=== PATIENT | female | born 1965 | race Caucasian/White ===

== ENCOUNTER 2016-09-19 16:19 | Emergency (ER) | payer OTHER ==
[2016-09-19 16:55] VITALS: BP 131/71; PULSE 70; TEMP 98.8; BMI 21.7
[2016-09-19 17:12] LABS: URINE APPEARANCE Clear; URINE BILIRUBIN Negative (NEGATIVE); URINE BLOOD Trace-intact (NEGATIVE); URINE COLOR YELLOW; URINE GLUCOSE (UA) Negative (NEGATIVE); URINE KETONE Negative (NEGATIVE); URINE LEUK ESTERASE Negative (NEGATIVE); URINE NITRITE Negative (NEGATIVE); URINE PROTEIN Negative (NEGATIVE); URINE UROBILINOGEN 0.2 (0.2-1.0)
[2016-09-19] MEDS ORDERED: SODIUM CHLORIDE 1,000 ML IV ONE (17:16)
--- NOTE | 2016-09-19 17:16 | PDOC ---
History of Present Illness - General History Source: Patient Exam Limitations: No Limitations - History of Present Illness Initial Comments: 09/19/16 18:43 The patient is a 51 year old female with a significant past medical history of kidney stones who presents to the ED with complaints of flank pain for a week. The patient reports intermittent left sided flank pain. She states her flank pain progressively worsened today and is now radiating to her groin area. She reports chills, nausea and one episode of diarrhea this morning. Patient states her present symptoms feel similar to her history of her last 10 kidney stones. She notes her last kidney stone was in February 2016. Patient had recent oral surgery and was prescribed Flurbiprofen and Azithromycin with her last dosing at 8 am this morning. Patient is new to the area and does not have a urologist. Denies fever. Denies vomiting. Denies dysuria or changes in urinary output. Denies chest pain or shortness of breath. Denies any other symptoms. Surgical hx: . <Diamond Robb - Last Filed: 09/19/16 18:43> <Harpal Carlin - Last Filed: 09/19/16 19:36> - General Chief Complaint: Pain Stated Complaint: LEFT FLANK PAIN Time Seen by Provider: 09/19/16 16:26 Past History <Diamond Robb - Last Filed: 09/19/16 18:43> - Past Medical History Kidney Stones: Yes - Surgical History Appendectomy: Yes - Psycho/Social/Smoking Cessation Hx Anxiety: No Suicidal Ideation: No Smoking History: Former smoker Have you smoked in the past 12 months: No Information on smoking cessation initiated: No Hx Alcohol Use: (social) <Harpal Carlin - Last Filed: 09/19/16 19:36> - Past Medical History Allergies/Adverse Reactions: Allergies Allergy/AdvReac Type Severity Reaction Status Date / Time No Known Allergies Allergy Verified 09/19/16 16:20 Home Medications: Ambulatory Orders Azithromycin 250 mg PO ASDIR 09/19/16 Cyclobenzaprine HCl [Flexeril 10 mg] 10 mg PO BID PRN #20 tablet 09/19/16 Flurbiprofen 100 mg PO Q12H 09/19/16 Review of Systems - Review of Systems Able to Perform ROS?: Yes Comments:: 09/19/16 18:44 CONSTITUTIONAL: + chills No reported: Fever, Diaphoresis, Generalized Weakness, Malaise, Loss of Appetite HEENT: No reported: Rhinorrhea, Nasal Congestion, Throat Pain, Throat Swelling, Difficulty Swallowing, Mouth Swelling, Ear Pain, Eye Pain, Visual Changes CARDIOVASCULAR: No reported: Chest Pain, Syncope, Palpitations, Irregular Heart Rate, Lightheadedness, Peripheral Edema RESPIRATORY: No reported: Cough, Shortness of Breath, SOB with Exertion, Orthopnea, Wheezing , Stridor, Hemoptysis GASTROINTESTINAL: + nausea, diarrhea No reported: Abdominal pain, Abdominal Distension, Vomiting, Constipation, Melena, Hematochezia GENITOURINARY: + flank pain No reported: Dysuria, Frequency, Urgency, Hesitancy, Genital Pain MUSCULOSKELETAL: No reported: Myalgia, Arthralgia, Joint Swelling, Back pain, Neck Pain SKIN: No reported: Rash, Itching, Pallor HEMEATOLOGIC/IMMUNOLOGIC: No reported: Easy Bleeding, Easy Bruising, Lymphadenopathy, Frequent infections ENDOCRINE: No reported: Unexplained Weight Gain, Unexplained Weight Loss, Heat Intolerance , Cold Intolerance NEUROLOGIC: No reported: Headache, Focal Weakness, Paresthesias, Vertigo, Lightheadedness, Unsteady Gait, Seizure, Mental Status Changes, Incontinence PSYCHIATRIC: No reported: Anxiety, Depression All Other Systems: Reviewed and Negative <Diamond Robb - Last Filed: 09/19/16 18:43> *Physical Exam - Vital Signs Last Vital Signs Temp Pulse Resp BP Pulse Ox 98.8 F 70 16 131/71 96 09/19/16 16:20 09/19/16 16:20 09/19/16 16:20 09/19/16 16:20 09/19/16 16:20 - Physical Exam Comments: 09/19/16 18:44 GENERAL: The patient is awake, alert, and fully oriented, Nontoxic - in no acute distress. HEAD: Normocephalic, atraumatic. EYES: extraocular movements intact, sclera anicteric, conjunctiva clear. ENT: Normal voice, Moist mucous membranes. NECK: Normal range of motion, supple LUNGS: Breath sounds equal, clear to auscultation bilaterally. No wheezes, no rhonchi, no rales. HEART: Regular rate and rhythm, without murmur, rub or gallop. ABDOMEN:+ mild left CVA tenderness. Soft, nontender, normoactive bowel sounds. No guarding, no rebound. EXTREMITIES: Normal range of motion, no edema. No clubbing or cyanosis. No cords, erythema, or tenderness. NEUROLOGICAL: No facial assymetry, Normal speech, PSYCH: Normal mood, normal affect. SKIN: Warm, Dry, normal turgor, <Robb,Andrys - Last Filed: 09/19/16 18:43> - Vital Signs Last Vital Signs Temp Pulse Resp BP Pulse Ox 98.8 F 70 16 131/71 96 09/19/16 16:20 09/19/16 16:20 09/19/16 16:20 09/19/16 16:20 09/19/16 16:20 <Tesfaye,Harpal - Last Filed: 09/19/16 19:36> ED Treatment Course - LABORATORY CBC & Chemistry Diagram: 09/19/16 17:29 09/19/16 17:29 - ADDITIONAL ORDERS Additional order review: Laboratory Results 09/19/16 09/19/16 17:29 17:00 Sodium 125 L Potassium 4.2 Chloride 93 L Carbon Dioxide 27 Anion Gap 5 L BUN 9 Creatinine 0.7 Creat Clearance w eGFR > 60 Random Glucose 94 Calcium 9.1 Total Bilirubin 0.7 AST 20 ALT 13 Alkaline Phosphatase 65 Total Protein 6.0 L Albumin 3.9 Urine Color Yellow Urine Appearance Clear Urine pH 6.0 Ur Specific [place] <= 1.005 Urine Protein Negative Urine Glucose (UA) Negative Urine Ketones Negative Urine Blood Trace-intact H Urine Nitrite Negative Urine Bilirubin Negative Urine Urobilinogen 0.2 Ur Leukocyte Esterase Negative Urine RBC 0-2 Urine WBC 0-1 09/19/16 17:29 RBC 3.94 MCV 93.7 MCHC 34.6 RDW 12.0 MPV 9.3 - Medications Given in the ED: ED Medications Discontinued Medications Generic Name Dose Route Start Last Admin Trade Name Freq PRN Reason Stop Dose Admin Sodium Chloride 1,000 mls @ 1,000 mls/hr 09/19/16 17:16 09/19/16 17:40 Normal Saline - IV 09/19/16 18:15 1,000 mls/hr .Q1H ONE Administration Ketorolac Tromethamine 30 mg 09/19/16 17:17 09/19/16 17:40 Toradol Injection - IVPUSH 09/19/16 17:18 30 mg ONCE ONE Administration <Diamond Robb - Last Filed: 09/19/16 18:43> - LABORATORY CBC & Chemistry Diagram: 09/19/16 17:29 09/19/16 17:29 - ADDITIONAL ORDERS Additional order review: Laboratory Results 09/19/16 17:00 Urine Color Yellow Urine Appearance Clear Urine pH 6.0 Ur Specific [place] <= 1.005 Urine Protein Negative Urine Glucose (UA) Negative Urine Ketones Negative Urine Blood Trace-intact H Urine Nitrite Negative Urine Bilirubin Negative Urine Urobilinogen 0.2 Ur Leukocyte Esterase Negative <Harpal Carlin - Last Filed: 09/19/16 19:36> Medical Decision Making - Medical Decision Making 09/19/16 18:37 interrmit L flank pain that is worsneing w/o f/c, n/v c/w kidney stones in the past will ck ct, labs, ua toradol, fluids will reassess A portion of this note was documented by scribe services under my direction. I have reviewed the details of the note, within reason, and agree with the documentation with the following case summary and management plan written by me 09/19/16 19:33 pts labs reviewed noted for mild hyponatremia - pt was giv en NS 1000L pts pain is improved CT negative for aute pathology or stones pt does have worsening pain on palpation in the L lower back suspect may be MSK in nature will recomend supportive care including heat, NSAIDS will hhave pt fu with PMD I discussed the physical exam findings, ancillary test results and final diagnoses with the patient. I answered all of the patient's questions. The patient was satisfied with the care received and felt comfortable with the discharge plan and treatment plan. The patient will call their primary care physician within 24 hours to arrange follow-up and will return to the Emergency Department with any new, persistent or worsening symptoms. <Harpal Carlin - Last Filed: 09/19/16 19:36> *DC/Admit/Observation/Transfer - Attestations Scribe Attestion: 09/19/16 18:44 Documentation prepared by Diamond Robb, acting as medical management trainer for Harpal Carlin MD <Diamond Robb - Last Filed: 09/19/16 18:43> - Discharge Dispostion Admit: No <Harpal Carlin - Last Filed: 09/19/16 19:36> Diagnosis at time of Disposition: Hyponatremia Lower back pain Qualifiers: Chronicity: unspecified Back pain laterality: left Sciatica presence: without sciatica Qualified Code(s): M54.5 - Low back pain - Discharge Dispostion Condition at time of disposition: Stable - Prescriptions Prescriptions: Cyclobenzaprine HCl [Flexeril 10 mg] 10 mg PO BID PRN #20 tablet PRN Reason: Pain - Referrals Referrals: Alex Oconnell MD [Staff Physician] - - Patient Instructions Printed Discharge Instructions: DI for Low Back Pain Additional Instructions: Return to the emergency department immediately with ANY new, persistent or worsening symptoms including numbness, tingling, weakness, fevers or any other concerns. Take ibuprofen (400mg)/tylenol(650mg) every 6 hours for 2 days. Take flexeril as needed. Apply heat to your sore muscles. You MUST call and follow up with your doctor tomorrow for further evaluation of your symptoms. Your emergency department visit is not complete without a followup with your doctor for reevaluation.. Results were discussed with you. Please make sure your doctor reviews the results of your emergency evaluation.
[2016-09-19] MEDS ORDERED: KETOROLAC TROMETHAMINE 30 MG/1 ML VIAL IVPUSH ONE (17:17)
[2016-09-19 17:28] LABS: URINE RBC 0-2 /hpf (0-3); URINE WBC 0-1 (3-5)
[2016-09-19] MEDS ORDERED: KETOROLAC TROMETHAMINE 30 MG/1 ML VIAL ONE (17:36)
[2016-09-19 17:43] LABS: MCH 32.4 pg (25.7-33.7); MCHC 34.6 g/dl (32.0-36.0); MEAN CELL VOLUME 93.7 fl (80-96); MEAN PLT VOLUME 9.3 fl (7.5-11.1); PLATELET COUNT 200 K/MM3 (134-434); WHITE BLOOD COUNT 7.3 K/mm3 (4.0-10.8)
[2016-09-19 17:53] LABS: ALBUMIN 3.9 g/dl (3.5-5.0); ALK PHOS 65 U/L (32-92); ANION GAP 5 (8-16); BILIRUBIN,TOTAL 0.7 mg/dl (0.2-1.0); CALCIUM 9.1 mg/dl (8.4-10.2); CO2 27 mmol/L (22-28); CREATININE 0.7 mg/dl (0.6-1.3); GLUCOSE,RANDOM 94 mg/dl (74-106); SGOT/AST 20 U/L (10-42); SGPT/ALT 13 U/L (10-40)
--- NOTE | 2016-09-19 19:23 | PDOC ---
*Physical Exam - Vital Signs Last Vital Signs Temp Pulse Resp BP Pulse Ox 98.8 F 70 16 131/71 96 09/19/16 16:20 09/19/16 16:20 09/19/16 16:20 09/19/16 16:20 09/19/16 16:20 ED Treatment Course - LABORATORY CBC & Chemistry Diagram: 09/19/16 17:29 09/19/16 17:29 - ADDITIONAL ORDERS Additional order review: Laboratory Results 09/19/16 09/19/16 17:29 17:00 Sodium 125 L Potassium 4.2 Chloride 93 L Carbon Dioxide 27 Anion Gap 5 L BUN 9 Creatinine 0.7 Creat Clearance w eGFR > 60 Random Glucose 94 Calcium 9.1 Total Bilirubin 0.7 AST 20 ALT 13 Alkaline Phosphatase 65 Total Protein 6.0 L Albumin 3.9 Urine Color Yellow Urine Appearance Clear Urine pH 6.0 Ur Specific [place] <= 1.005 Urine Protein Negative Urine Glucose (UA) Negative Urine Ketones Negative Urine Blood Trace-intact H Urine Nitrite Negative Urine Bilirubin Negative Urine Urobilinogen 0.2 Ur Leukocyte Esterase Negative Urine RBC 0-2 Urine WBC 0-1 09/19/16 17:29 RBC 3.94 MCV 93.7 MCHC 34.6 RDW 12.0 MPV 9.3 - Medications Given in the ED: ED Medications Discontinued Medications Generic Name Dose Route Start Last Admin Trade Name Freq PRN Reason Stop Dose Admin Sodium Chloride 1,000 mls @ 1,000 mls/hr 09/19/16 17:16 09/19/16 17:40 Normal Saline - IV 09/19/16 18:15 1,000 mls/hr .Q1H ONE Administration Ketorolac Tromethamine 30 mg 09/19/16 17:17 09/19/16 17:40 Toradol Injection - IVPUSH 09/19/16 17:18 30 mg ONCE ONE Administration Progress Note - Progress Note Progress Note: Care of this patient was transferred to mo from Dr. lutz at 1900 hrs. This is a 51-year-old female who comes in complaining of left flank pain. Patient has a history of renal colic and does have some small amount of blood in her urine. Patient is comfortable at this time. Patient has a CT pending to rule out kidney stone. Patient is receiving IV normal saline. Her blood work is unremarkable with a normal white count and no left shift however her sodium was mildly decreased at 125. Plan is follow up on CT, Patient's CT came back prior to Dr. Carlin leaving and he went ahead and made disposition on this patient. *DC/Admit/Observation/Transfer Diagnosis at time of Disposition: Lower back pain, Hyponatremia - Discharge Dispostion Condition at time of disposition: Stable - Prescriptions Prescriptions: Cyclobenzaprine HCl [Flexeril 10 mg] 10 mg PO BID PRN #20 tablet PRN Reason: Pain - Referrals Referrals: Alex Oconnell MD [Staff Physician] - - Patient Instructions Printed Discharge Instructions: DI for Low Back Pain Additional Instructions: Return to the emergency department immediately with ANY new, persistent or worsening symptoms including numbness, tingling, weakness, fevers or any other concerns. Take ibuprofen (400mg)/tylenol(650mg) every 6 hours for 2 days. Take flexeril as needed. Apply heat to your sore muscles. You MUST call and follow up with your doctor tomorrow for further evaluation of your symptoms. Your emergency department visit is not complete without a followup with your doctor for reevaluation.. Results were discussed with you. Please make sure your doctor reviews the results of your emergency evaluation.
== END 2016-09-19 19:40 | disposition home or self-care (01) ==
LOC: FER 16:19
PROC: 3E0333Z Introduction of Anti-inflammatory into Peripheral Vein, Percutaneous Approach (ICD-10-PCS; principal; 2016-09-19)
PROC: 3E0337Z Introduction of Electrolytic and Water Balance Substance into Peripheral Vein, Percutaneous Approach (ICD-10-PCS; 2016-09-19)
DX: E87.1 Hypo-osmolality and hyponatremia (principal); M54.5 Low back pain; Z87.442 Personal history of urinary calculi
CPT/HCPCS: 36415; 74176; 80053; 81003; 81015; 85027; 99284-25